=== PATIENT | male | born 1980 | race Two or more races ===

== ENCOUNTER 2024-04-29 10:27 | Inpatient (IN) | payer OTHER ==
[2024-04-29 11:19] VITALS: BMI 29.1
[2024-04-29] MEDS ORDERED: POLYETHYLENE GLYCOL (HEALTHYLAX) 3350 17 GM PACKET PO PRN (11:30)
[2024-04-29] MEDS ORDERED: LOPERAMIDE HCL 2 MG CAPSULE PO PRN (11:30)
[2024-04-29] MEDS ORDERED: BISMUTH SUBSALICYLATE 524 MG/30 ML PO PRN (11:30)
[2024-04-29] MEDS ORDERED: BENZOCAINE/MENTHOL (CHLORASEPTIC ) LOZENGE MM PRN (11:30)
[2024-04-29] MEDS ORDERED: DICYCLOMINE HCL 10 MG CAPSULE PO PRN (11:30)
[2024-04-29] MEDS ORDERED: BENZONATATE 200 MG CAPSULE PO PRN (11:30)
[2024-04-29] MEDS ORDERED: NICOTINE POLACRILEX 2 MG GUM BUC PRN (11:30)
[2024-04-29] MEDS ORDERED: hydrOXYzine PAMOATE 25 MG CAPSULE (FP) PO PRN (11:30)
[2024-04-29] MEDS ORDERED: guaiFENesin 600 MG TABLET.ER (FP) PO PRN (11:30)
[2024-04-29] MEDS ORDERED: MAGNESIUM HYDROX 2400MG/30ML ORAL SUSPENSION 30 ML CUP PO PRN (11:30)
[2024-04-29] MEDS ORDERED: ACETAMINOPHEN 325 MG TABLET (FP) PO PRN (11:30)
[2024-04-29] MEDS ORDERED: IBUPROFEN 400 MG TABLET (FP) PO PRN (11:30)
[2024-04-29] MEDS ORDERED: NICOTINE POLACRILEX 2 MG LOZENGE BC PRN (11:30)
[2024-04-29] MEDS ORDERED: MAG HYDROX/AL HYDROX/SIMETH 30 ML UNIT-DOSE CUP PO PRN (11:30)
[2024-04-29] MEDS ORDERED: METHOCARBAMOL 500 MG TABLET PO PRN (11:30)
[2024-04-29] MEDS ORDERED: chlordiazePOXIDE HCL 25 MG CAPSULE PO PRN (11:33)
[2024-04-29] MEDS: chlordiazePOXIDE HCL 25 MG CAPSULE PO SCH (11:54)
[2024-04-29] MEDS: THIAMINE 100 MG TABLET PO SCH (22:43)
[2024-04-29] MEDS: MELATONIN 5 MG TABLETS PO SCH (22:43)
[2024-04-30] MEDS: ONDANSETRON *ODT* 4 MG TABLET SL PRN (05:33)
[2024-04-30] MEDS: levETIRAcetam 500 MG TABLET (FP) PO SCH (10:04)
[2024-04-30] MEDS: PRENATAL VITAMINS W/ FOLIC ACID TABLET (FP) PO SCH (10:04)
[2024-04-30 14:57] LABS: HEMATOCRIT 39.9 % (35.4-49); HEMOGLOBIN 12.9 GM/dL (11.7-16.9); MCH 29.6 pg (25.7-33.7); MCHC 32.3 g/dl (32.0-35.9); MEAN CELL VOLUME 91.8 fl (80-96); PLATELET COUNT 227 10^3/uL (134-434); RBC 4.35 M/mm3 (4.00-5.60); RDW 14.8 % (11.9-15.9); WHITE BLOOD COUNT 6.7 K/mm3 (4.0-10.0)
[2024-04-30 15:02] LABS: POTASSIUM 4.2 mmol/L (3.5-5.1)
[2024-04-30 15:07] LABS: CALCIUM 9.4 mg/dL (8.5-10.1)
[2024-04-30 15:08] LABS: ALBUMIN 3.6 g/dl (3.4-5.0); BLOOD UREA NITROGEN 12.2 mg/dL (7-18)
[2024-04-30 15:11] LABS: BILIRUBIN,TOTAL 0.9 mg/dL (0.2-1); CREATININE 1.1 mg/dL (0.55-1.3); TOT PROT 7.2 g/dl (6.4-8.2)
[2024-05-01] MEDS: chlordiazePOXIDE HCL 25 MG CAPSULE PO SCH (05:16)
[2024-05-01] MEDS ORDERED: TRIMETHOBENZAMIDE HCL 200MG/2ML INJ IM PRN (12:58)
[2024-05-01] MEDS: IBUPROFEN 600 MG TABLET (FP) PO PRN (13:27)
[2024-05-01] MEDS ORDERED: LORazepam 1 MG TABLET PO PRN (15:10)
[2024-05-01] MEDS: PANTOPRAZOLE 40 MG TABLET PO SCH (16:24)
[2024-05-01] MEDS ORDERED: chlordiazePOXIDE HCL 10 MG CAPSULE PO SCH (17:00)
[2024-05-01] MEDS: LORazepam 2 MG TABLET PO SCH (17:24)
[2024-05-02] MEDS ORDERED: chlordiazePOXIDE HCL 10 MG CAPSULE PO PRN
[2024-05-02] MEDS ORDERED: chlordiazePOXIDE HCL 10 MG CAPSULE PO SCH (05:00)
[2024-05-02] MEDS: LORazepam 1 MG TABLET PO SCH (05:27)
[2024-05-02] MEDS: SUCRALFATE 1 GM TABLET (FP) PO SCH (07:04)
[2024-05-03] MEDS ORDERED: LORazepam 0.5 MG TABLET PO PRN
[2024-05-03] MEDS ORDERED: chlordiazePOXIDE HCL 10 MG CAPSULE PO SCH (05:00)
[2024-05-03] MEDS: LORazepam 0.5 MG TABLET PO SCH (05:35)
[2024-05-04] MEDS ORDERED: chlordiazePOXIDE HCL 10 MG CAPSULE PO ONE (05:00)
[2024-05-04] MEDS: LORazepam 0.5 MG TABLET PO ONE (05:48)
[2024-05-04 06:44] VITALS: RESP 16
[2024-05-04 09:16] VITALS: BP 110/79; PULSE 91; TEMP 97.8
== END 2024-05-04 12:09 | disposition other institution (70) | DRG 775 ==
LOC: YASAS 10:27 → Y6N 12:07 → Y3E 05-04 11:13 → Y6N 05-04 11:13
PROVIDERS: ADMIT Allergy & Immunology; ATTEND Surgery
PROC: HZ2ZZZZ Detoxification Services for Substance Abuse Treatment (ICD-10-PCS; principal; 2024-04-29)
DX: F10.230 Alcohol dependence with withdrawal, uncomplicated (principal); F17.210 Nicotine dependence, cigarettes, uncomplicated; F10.280 Alcohol dependence with alcohol-induced anxiety disorder; F10.24 Alcohol dependence with alcohol-induced mood disorder; F32.A Depression, unspecified; K29.20 Alcoholic gastritis without bleeding; K21.9 Gastro-esophageal reflux disease without esophagitis; M41.9 Scoliosis, unspecified; Z62.810 Personal history of physical and sexual abuse in childhood; Z63.8 Other specified problems related to primary support group; Z56.0 Unemployment, unspecified
CPT/HCPCS: 36415; 80053; 80305; 80307; 85027; 86780; 87811; 93005; 93010; Q0162

== ENCOUNTER 2024-05-04 12:22 | Inpatient (IN) | payer OTHER ==
[2024-05-04] MEDS ORDERED: BENZONATATE 200 MG CAPSULE PO PRN (13:01)
[2024-05-04] MEDS ORDERED: guaiFENesin 600 MG TABLET.ER (FP) PO PRN (13:01)
[2024-05-04] MEDS ORDERED: MAGNESIUM HYDROX 2400MG/30ML ORAL SUSPENSION 30 ML CUP PO PRN (13:01)
[2024-05-04] MEDS ORDERED: POLYETHYLENE GLYCOL (HEALTHYLAX) 3350 17 GM PACKET PO PRN (13:01)
[2024-05-04] MEDS ORDERED: ACETAMINOPHEN 325 MG TABLET (FP) PO PRN (13:01)
[2024-05-04] MEDS ORDERED: BENZOCAINE/MENTHOL (CHLORASEPTIC ) LOZENGE MM PRN (13:01)
[2024-05-04] MEDS ORDERED: NICOTINE POLACRILEX 4 MG LOZENGE BC PRN (13:01)
[2024-05-04] MEDS ORDERED: IBUPROFEN 600 MG TABLET (FP) PO PRN (13:01)
[2024-05-04] MEDS ORDERED: NALOXONE (NARCAN) HCL 4 MG/0.1 ML SPRAY NS PRN (13:01)
[2024-05-04] MEDS ORDERED: IBUPROFEN 400 MG TABLET (FP) PO PRN (13:01)
[2024-05-04] MEDS ORDERED: NALOXONE HCL 0.4 MG/ML VIAL IVPUSH PRN (13:01)
[2024-05-04] MEDS ORDERED: NICOTINE POLACRILEX 4 MG GUM BUC PRN (13:01)
[2024-05-04] MEDS ORDERED: METHOCARBAMOL 500 MG TABLET PO PRN (13:01)
[2024-05-04] MEDS ORDERED: NICOTINE 14 MG/24 HOURS TOPICAL PATCH TD PRN (13:01)
[2024-05-04] MEDS ORDERED: LOPERAMIDE HCL 2 MG CAPSULE PO PRN (13:01)
[2024-05-04] MEDS ORDERED: MAG HYDROX/AL HYDROX/SIMETH 30 ML UNIT-DOSE CUP PO PRN (13:01)
[2024-05-04] MEDS ORDERED: NALOXONE (NYS OPIOID OVERDOSE PROGRAM) 4 MG/0.1 ML SPRAY NS PRN ×3 (14:00→14:37)
[2024-05-04] MEDS: levETIRAcetam 250 MG TABLET PO SCH (21:05)
[2024-05-04] MEDS: MELATONIN 5 MG TABLETS PO SCH (21:05)
[2024-05-04] MEDS: THIAMINE 100 MG TABLET PO SCH (21:05)
[2024-05-05] MEDS: PANTOPRAZOLE 20 MG TABLET PO SCH (10:38)
[2024-05-05] MEDS: PRENATAL VITAMINS W/ FOLIC ACID TABLET (FP) PO SCH (10:38)
[2024-05-07] MEDS: NALTREXONE HCL 50 MG TABLET PO ONE (15:14)
[2024-05-07 20:54] VITALS: BP 131/82; PULSE 75; RESP 16; TEMP 97.7
[2024-05-07] MEDS: hydrOXYzine PAMOATE 25 MG CAPSULE (FP) PO PRN (21:26)
[2024-05-08] MEDS ORDERED: ESCITALOPRAM OXALATE 10 MG TABLET PO SCH (10:00)
[2024-05-08] MEDS ORDERED: NALTREXONE HCL 50 MG TABLET PO SCH (10:00)
[2024-05-08] MEDS ORDERED: levETIRAcetam 250 MG TABLET PO SCH (10:00)
== END 2024-05-08 02:42 | disposition short-term general hospital (02) | DRG 772 ==
LOC: YASAS 12:22 → Y3E 12:24
PROVIDERS: ADMIT Psychiatry & Neurology Pain Medicine; ATTEND Psychiatry & Neurology Pain Medicine
PROC: HZ42ZZZ Group Counseling for Substance Abuse Treatment, Cognitive-Behavioral (ICD-10-PCS; principal; 2024-05-04)
DX: F10.20 Alcohol dependence, uncomplicated (principal); F17.210 Nicotine dependence, cigarettes, uncomplicated; F32.A Depression, unspecified; K21.9 Gastro-esophageal reflux disease without esophagitis; R45.851 Suicidal ideations
CPT/HCPCS: 82140